=== PATIENT | male | born 1945 | race Caucasian/White ===

== ENCOUNTER 2016-08-27 23:44 | Emergency (ER) | payer OTHER, MEDICARE | END 2016-08-28 00:04 | disposition left against medical advice (07) | DX: Z53.21 Procedure and treatment not carried out due to patient leaving prior to being seen by health care provider (principal) ==

== ENCOUNTER 2017-05-29 15:46 | Emergency (ER) | payer OTHER, MEDICARE ==
--- NOTE | 2017-05-29 16:03 | EDPHY ---
H & P Stated Complaint: Episode of weakness, dizziness and listing to the right upon waking Time Seen by Provider: 05/29/17 16:01 HPI/ROS: CHIEF COMPLAINT: Transient weakness HISTORY OF PRESENT ILLNESS: The patient presents to the ED for evaluation of transient weakness. The patient reportedly woke up with symptoms today which he described as "leaning toward the right" immediately after getting out of bed. Symptoms reportedly lasted for several minutes then resolved. He has been symptom-free since that time. The patient denies any history of stroke or TIA. The patient denies any history of hypertension, diabetes, vascular disease or hyperlipidemia. The patient contacted his primary care provider who referred him to the ED for further workup. The patient denies any recent fever , cough or congestion. He has no additional acute complaints. REVIEW OF SYSTEMS: A comprehensive 10 point review of systems is otherwise negative aside from elements mentioned in the history of present illness. Source: Patient Exam Limitations: No limitations - Personal History Current Tetanus Diphtheria and Acellular Pertussis (TDAP): Yes - Medical/Surgical History Hx Asthma: No Hx Chronic Respiratory Disease: No Hx Diabetes: No Hx Cardiac Disease: No Hx Renal Disease: No Hx Cirrhosis: No Hx Alcoholism: No Hx HIV/AIDS: No Hx Splenectomy or Spleen Trauma: No Other PMH: ANXIETY, depression. - Social History Smoking Status: Never smoked - Physical Exam Exam: General Appearance: Alert, no distress Eyes: Pupils equal and round no pallor or injection ENT, Mouth: Mucous membranes moist Respiratory: There are no retractions, lungs are clear to auscultation Cardiovascular: Regular rate and rhythm Gastrointestinal: Abdomen is soft and nontender, no masses, bowel sounds normal Neurological: A&O, normal motor function, normal sensory exam, normal cranial nerves, NIH stroke scale is 0 Skin: Warm and dry, no rashes Musculoskeletal: Neck is supple nontender Extremities: symmetrical, full range of motion Psychiatric: Patient is oriented X 3, there is no agitation Constitutional: Initial Vital Signs Temperature (C) 36.6 C 05/29/17 15:47 Heart Rate 64 05/29/17 15:47 Respiratory Rate 16 05/29/17 15:47 Blood Pressure 132/82 H 05/29/17 15:47 O2 Sat (%) 96 05/29/17 15:47 O2 Delivery Mode Room Air Allergies/Adverse Reactions: No Known Allergies Allergy (Unverified 12/16/14 13:02) Home Medications: Medication Instructions Recorded Prozac 20 MG (*) 05/29/17 traZODone 05/29/17 Medical Decision Making - Diagnostics EKG Interpretation: EKG: Complete interpretation has been separately recorded in the [facility] archive. Summary impression: Sinus rhythm, rate 55 Imaging Results: Imaging Impressions Brain MRI 05/29/17 16:17 Impression: No source for right-sided weakness identified. Results called to Dr. Matthew Hall. CT angiogram head neck: Images reviewed by myself and discussed with radiologist Dr. Hawk. Negative for obvious stenosis or dissection. ED Course/Re-evaluation: The patient presents to the ED for evaluation of transient weakness involving the right leg and possibly arm. The patient had an NIH stroke scale is 0 upon arrival. The patient was offered admission to the hospital for possible workup of TIA however would like to go home. The patient did undergo an MRI in the ED which demonstrated no evidence of a stroke. CT angiogram of the head neck demonstrate no evidence of obvious stenosis or dissection and his EKG demonstrates no evidence of arrhythmia. The patient has no significant hypertension. He has no abnormalities on his neurologic exam. The patient will be advised to begin taking 81 mg aspirin on a daily basis. He is referred to the neurologist at [facility] for further evaluation. He is advised to return to the ED immediately for any recurrent neurologic symptoms. The patient is a competent decision maker to decline admission to the hospital for observation this evening. Differential Diagnosis: Differential diagnosis considered includes stroke, TIA, carotid dissection, arrhythmia, carotid stenosis - Data Points Laboratory Results: Laboratory Results 05/29/17 16:20 05/29/17 16:20 05/29/17 05/29/17 05/29/17 16:57 16:20 16:20 WBC RBC Hgb Hct MCV MCH MCHC RDW Plt Count MPV Neut % (Auto) Lymph % (Auto) Summers % (Auto) Eos % (Auto) Baso % (Auto) Nucleat RBC Rel Count Absolute Neuts (auto) Absolute Lymphs (auto) Absolute Monos (auto) Absolute Eos (auto) Absolute Basos (auto) Absolute Nucleated RBC Immature Gran % Immature Gran # PT 13.9 SEC SEC REJ (12.0-15.0) INR 1.05 REJ (0.83-1.16) Sodium 142 mEq/L mEq/L (135-145) Potassium 4.0 mEq/L mEq/L (3.5-5.2) Chloride 101 mEq/L mEq/L (97-110) Carbon Dioxide 29 mEq/l mEq/l (22-31) Anion Gap 12 mEq/L mEq/L (8-16) BUN 17 mg/dL mg/dL (7-23) Creatinine 0.7 mg/dL mg/dL (0.7-1.3) Estimated GFR > 60 Glucose 94 mg/dL mg/dL (70-100) Calcium 8.9 mg/dL mg/dL (8.5-10.4) Troponin I < 0.012 ng/mL ng/mL (0.000-0.034) 05/29/17 16:20 WBC 5.00 10^3/uL 10^3/uL (3.80-9.50) RBC 4.79 10^6/uL 10^6/uL (4.40-6.38) Hgb 15.0 g/dL g/dL (13.7-17.5) Hct 44.0 % % (40.0-51.0) MCV 91.9 fL fL (81.5-99.8) MCH 31.3 pg pg (27.9-34.1) MCHC 34.1 g/dL g/dL (32.4-36.7) RDW 12.6 % % (11.5-15.2) Plt Count 228 10^3/uL 10^3/uL (150-400) MPV 9.6 fL fL (8.7-11.7) Neut % (Auto) 52.0 % % (39.3-74.2) Lymph % (Auto) 34.6 % % (15.0-45.0) Summers % (Auto) 9.6 % % (4.5-13.0) Eos % (Auto) 2.8 % % (0.6-7.6) Baso % (Auto) 0.8 % % (0.3-1.7) Nucleat RBC Rel Count 0.0 % % (0.0-0.2) Absolute Neuts (auto) 2.60 10^3/uL 10^3/uL (1.70-6.50) Absolute Lymphs (auto) 1.73 10^3/uL 10^3/uL (1.00-3.00) Absolute Monos (auto) 0.48 10^3/uL 10^3/uL (0.30-0.80) Absolute Eos (auto) 0.14 10^3/uL 10^3/uL (0.03-0.40) Absolute Basos (auto) 0.04 10^3/uL 10^3/uL (0.02-0.10) Absolute Nucleated RBC 0.00 10^3/uL 10^3/uL (0-0.01) Immature Gran % 0.2 % % (0.0-1.1) Immature Gran # 0.01 10^3/uL 10^3/uL (0.00-0.10) PT INR Sodium Potassium Chloride Carbon Dioxide Anion Gap BUN Creatinine Estimated GFR Glucose Calcium Troponin I Departure - Departure Disposition: [facility] IP Clinical Impression: Transient cerebral ischemia Condition: Good Instructions: Transient Ischemic Attack (ED) Additional Instructions: 1. Please return to the ED for any recurrent neurologic symptoms, headache or other concerns. 2. Please schedule a follow-up visit with a neurologist you have been referred to. 3. Please follow up with your primary care provider regarding your workup in the emergency department. Referrals: Ирина Cassidy MD [Primary Care Provider] - As per Instructions Shayy Chase DO [Non Staff and Non MD] - As per Instructions
--- NOTE | 2017-05-29 16:22 | CPEKG ---
Heart Rate: 55 RR Interval: 1091 P-R Interval: 160 QRSD Interval: 90 QT Interval: 432 QTC Interval: 414 P Daniel: 66 QRS Daniel: -38 T Wave Daniel: 55 EKG Severity - OTHERWISE NORMAL ECG - EKG Impression: SINUS RHYTHM EKG Impression: LEFT AXIS DEVIATION Electronically Signed By: Juan Manuel Hall 29-May-2017 18:57:19
[2017-05-29 16:31] LABS: PLATELET COUNT 228 10^3/uL (150-400)
[2017-05-29 17:30] LABS: INR 1.05 (0.83-1.16); PROTIME(PATIENT) 13.9 SEC (12.0-15.0)
[2017-05-29] MEDS ORDERED: IOPAMIDOL (ISOVUE 370) 100 ML BTL IV ONE (17:48)
[2017-05-29 19:14] VITALS: BP 117/74
== END 2017-05-29 19:12 | disposition home or self-care (01) ==
DX: G45.9 Transient cerebral ischemic attack, unspecified (principal)
CPT/HCPCS: 70496; 70498; 70551; 93005; 99285; Q9967

== ENCOUNTER → 2017-12-05 | Outpatient (CLI) | payer OTHER, MEDICARE | LOC: BMCIMAGING 13:48 | PROVIDERS: ATTEND Family Medicine | DX: M18.11 Unilateral primary osteoarthritis of first carpometacarpal joint, right hand (principal); M85.841 Other specified disorders of bone density and structure, right hand; X58.XXXA Exposure to other specified factors, initial encounter ==

== ENCOUNTER → 2018-02-06 | Outpatient (CLI) | payer OTHER, MEDICARE | LOC: BMCIMAGING 09:49 | PROVIDERS: ATTEND Family Medicine | DX: S22.31XA Fracture of one rib, right side, initial encounter for closed fracture (principal); W19.XXXA Unspecified fall, initial encounter | CPT/HCPCS: 71101-PO ==

== ENCOUNTER → 2018-07-23 | Outpatient (CLI) | payer OTHER | LOC: BMCIMAGING 13:29 ==